=== PATIENT | female | born 1965 | race Caucasian/White ===

== ENCOUNTER → 2017-03-25 | Emergency (ER) | payer OTHER ==
[~2017-03-25] VITALS: Ht 162.6 cm; Wt 105.2 kg
[~2017-03-25] MED LIST: COZAAR100 MG; SYNTHROID125 MCG
== END | disposition home or self-care (01) ==
LOC: ER 08:55
DX: R42 Dizziness and giddiness (principal); R51 Headache

== ENCOUNTER → 2017-07-15 06:41 | Outpatient (CLI) | payer OTHER | END | disposition home or self-care (01) | LOC: LAB 06:41 | DX: I10 Essential (primary) hypertension (principal); E11.9 Type 2 diabetes mellitus without complications; E03.9 Hypothyroidism, unspecified; E78.2 Mixed hyperlipidemia; M81.0 Age-related osteoporosis without current pathological fracture ==

== ENCOUNTER 2022-01-30 10:17 | Outpatient (CLI) | payer OTHER | END 2022-01-30 10:20 | disposition home or self-care (01) | LOC: MRI 10:17 | PROVIDERS: ATTEND Orthopaedic Surgery | DX: M25.561 Pain in right knee (principal); M25.562 Pain in left knee; S83.200A Bucket-handle tear of unspecified meniscus, current injury, right knee, initial encounter | CPT/HCPCS: 73721 ==